=== PATIENT | male | born 1950 | race Caucasian/White ===

== ENCOUNTER 2016-05-28 15:53 | Inpatient (IN) | payer OTHER ==
[~2016-05-28] VITALS: Ht 188 cm; Wt 81.7 kg
[~2016-05-28 15:53] MED LIST: CARV3.122 PO; CHOL200024 PO; CRAN300T PO; DIPH25CA61 PO; FLUT1DIS3 INH; GUAI-44 PO; GUAI600T53 PO; HYDR-3138 PO; LISI2.5T PO; MAGN64TA7 PO; MAGN71.5 PO; MELA2.5T PO; NITR100C6 PO; OMEP-110 PO; PHEN-494 PO; SPIR25TA3 PO; SPIRONOLACT PO; SULF-187 PO; SULF1TAB24 PO; TAMS-11 PO; TIOT18CA INH; cranberry PO; vitamin b PO
[2016-05-28] MEDS ORDERED: ALBUTEROL/IPRATROPIUM 2.5MG/0.5MG, 3 ML ONE (16:14)
[2016-05-28] MEDS ORDERED: ALBUTEROL SULFATE 2.5 MG/3 ML ONE (16:14)
[2016-05-28] MEDS ORDERED: methylPREDNISolone SOD SUCC 125 MG/2 ML ONE (16:20)
[2016-05-28] MEDS ORDERED: SODIUM CHLORIDE FLUSH 10ML SYR IVF ONE (16:30)
[2016-05-28] MEDS ORDERED: ALBUTEROL/IPRATROPIUM 2.5MG/0.5MG, 3 ML NPPB ONE (16:30)
[2016-05-28] MEDS ORDERED: ALBUTEROL SULFATE 2.5 MG/3 ML NPPB ONE ×2 (16:30→18:00)
[2016-05-28] MEDS ORDERED: methylPREDNISolone SOD SUCC 125 MG/2 ML IVP ONE (16:30)
[2016-05-28 17:32] LABS: ABG COLLECTION SITE RIGHT RADIAL; COLLATERAL CIRCULATION TESTING NORMAL
[2016-05-28 17:43] LABS: HEMOGLOBIN 15.4 g/dL (13.7-18.0)
[2016-05-28 17:54] LABS: BLOOD UREA NITROGEN 29 mg/dL (7-18)
[2016-05-28 17:55] LABS: ASPARTATE AMINO TRANSFERASE 28 U/L (15-37)
[2016-05-28 18:00] LABS: IS PT STATUS REG ER OR PRE ER? YES
[2016-05-28 18:11] LABS: ANISOCYTOSIS 1+; OVALOCYTES 1+
[2016-05-28 18:12] LABS: POLYCHROMASIA 1+
[2016-05-28] MEDS ORDERED: BISACODYL 10 MG SUPP PR PRN (20:00)
[2016-05-28] MEDS ORDERED: ONDANSETRON ODT 4 MG PO PRN (20:00)
[2016-05-28] MEDS ORDERED: POLYETHYLENE GLYCOL 17 GM PACKET PO PRN (20:00)
[2016-05-28] MEDS ORDERED: ACETAMINOPHEN 325 MG TABLET PO PRN (20:00)
[2016-05-28] MEDS ORDERED: LABETALOL 5MG/ML, 20ML IV PRN (20:00)
[2016-05-28] MEDS ORDERED: DOCUSATE 100 MG CAPSULE PO PRN (20:00)
[2016-05-28 20:10] VITALS: BP 119/82
[2016-05-28] MEDS: HEPARIN 5,000 UNITS/ML, 1ML SQ SCH (21:24)
[2016-05-28] MEDS: NICOTINE 14MG/24 HR PATCH.TD24 TD SCH (21:24)
[2016-05-28] MEDS: FUROSEMIDE 40 MG/4 ML IV SCH (21:24)
[2016-05-28] MEDS: CARVEDILOL 3.125 MG TABLET PO SCH (21:25)
[2016-05-28] MEDS: TRAZODONE 50MG TABLET PO PRN (21:25)
[2016-05-28] MEDS: MAGNESIUM CHLORIDE 64 MG TABLET.DR PO SCH (21:25)
[2016-05-28 23:47] LABS: IS PT STATUS REG ER OR PRE ER? NO
[2016-05-29 01:45] VITALS: BP 117/76
[2016-05-29] MEDS ORDERED: IPRATROPIUM 0.5 MG/2.5 ML INHA NPPB SCH ×2 (02:30→09:00)
[2016-05-29] MEDS: HEPARIN 5,000 UNITS/ML, 1ML SQ SCH ×3 (05:20→22:56)
[2016-05-29 05:36] LABS: HEMOGLOBIN 15.4 g/dL (13.7-18.0)
[2016-05-29 06:07] LABS: ASPARTATE AMINO TRANSFERASE 23 U/L (15-37); BLOOD UREA NITROGEN 28 mg/dL (7-18)
[2016-05-29 06:13] LABS: IS PT STATUS REG ER OR PRE ER? NO
[2016-05-29] MEDS: ALBUTEROL/IPRATROPIUM 2.5MG/0.5MG, 3 ML NPPB SCH ×4 (07:00→20:00)
[2016-05-29 07:51] VITALS: BP 96/67
[2016-05-29] MEDS ORDERED: MAGNESIUM SULFATE PMX 2GM/50ML 50 ML IV ONE (08:00)
[2016-05-29 09:12] VITALS: BP 127/58
[2016-05-29] MEDS: FUROSEMIDE 40 MG/4 ML IV SCH ×2 (09:14→17:08)
[2016-05-29] MEDS: CARVEDILOL 3.125 MG TABLET PO SCH ×2 (09:15→21:02)
[2016-05-29] MEDS: THIAMINE 100MG TABLET PO SCH (09:15)
[2016-05-29] MEDS: OMEPRAZOLE 20 MG CAPSULE.DR PO SCH (09:15)
[2016-05-29] MEDS: LISINOPRIL 5 MG TABLET PO SCH (09:15)
[2016-05-29] MEDS: FOLIC ACID 1 MG TABLET PO SCH (09:15)
[2016-05-29] MEDS: MAGNESIUM CHLORIDE 64 MG TABLET.DR PO SCH ×2 (09:15→21:02)
[2016-05-29] MEDS: CHOLECALCIFEROL 1,000 UNIT TABLET PO SCH (09:15)
[2016-05-29] MEDS: SPIRONOLACTONE 25 MG TABLET PO SCH (09:16)
[2016-05-29] MEDS: FLUTICASONE/VILANTEROL 100-25MCG/INH INH SCH (10:33)
[2016-05-29 18:37] VITALS: BP 107/63
[2016-05-29] MEDS: NICOTINE 14MG/24 HR PATCH.TD24 TD SCH (21:02)
[2016-05-29] MEDS: TRAZODONE 50MG TABLET PO PRN (22:22)
[2016-05-30 00:53] VITALS: BP 128/74
[2016-05-30 06:25] LABS: HEMOGLOBIN 15.1 g/dL (13.7-18.0)
[2016-05-30 06:31] LABS: BLOOD UREA NITROGEN 32 mg/dL (7-18)
[2016-05-30 06:55] VITALS: BP 109/79
[2016-05-30] MEDS: ALBUTEROL/IPRATROPIUM 2.5MG/0.5MG, 3 ML NPPB SCH (06:55)
[2016-05-30 07:13] LABS: DIFF TOTAL CELLS COUNTED 100 CELL DIFF
[2016-05-30 07:39] LABS: ANISOCYTOSIS 1+; HYPOCHROMIA 1+; VERIFY COUNTS? YES
[2016-05-30 07:40] LABS: OVALOCYTES 1+
[2016-05-30] MEDS: FOLIC ACID 1 MG TABLET PO SCH (07:59)
[2016-05-30] MEDS: CHOLECALCIFEROL 1,000 UNIT TABLET PO SCH (07:59)
[2016-05-30] MEDS: MAGNESIUM CHLORIDE 64 MG TABLET.DR PO SCH (07:59)
[2016-05-30] MEDS: LISINOPRIL 5 MG TABLET PO SCH (07:59)
[2016-05-30] MEDS: SPIRONOLACTONE 25 MG TABLET PO SCH (07:59)
[2016-05-30] MEDS: CARVEDILOL 3.125 MG TABLET PO SCH (07:59)
[2016-05-30] MEDS: THIAMINE 100MG TABLET PO SCH (07:59)
[2016-05-30] MEDS: OMEPRAZOLE 20 MG CAPSULE.DR PO SCH (07:59)
[2016-05-30] MEDS: HEPARIN 5,000 UNITS/ML, 1ML SQ SCH (08:00)
[2016-05-30] MEDS: FLUTICASONE/VILANTEROL 100-25MCG/INH INH SCH (08:00)
[2016-05-30] MEDS: FUROSEMIDE 40 MG/4 ML IV SCH (08:00)
[2016-05-30] MEDS ORDERED: PRED10TA PO (11:20)
[2016-05-30] MEDS ORDERED: FURO40TA6 PO (11:20)
[2016-05-30] MEDS ORDERED: POTA10TA90 PO (11:20)
== END 2016-05-30 15:30 | disposition home or self-care (01) | DRG 291 ==
LOC: ED 18:52 → EDIP 18:58 → 4WST 20:08
PROVIDERS: ADMIT Internal Medicine; ATTEND Internal Medicine
DX: I50.43 Acute on chronic combined systolic (congestive) and diastolic (congestive) heart failure (principal); J96.01 Acute respiratory failure with hypoxia; E87.1 Hypo-osmolality and hyponatremia; I42.9 Cardiomyopathy, unspecified; J44.1 Chronic obstructive pulmonary disease with (acute) exacerbation; E88.09 Other disorders of plasma-protein metabolism, not elsewhere classified; F10.20 Alcohol dependence, uncomplicated; F12.90 Cannabis use, unspecified, uncomplicated; F17.210 Nicotine dependence, cigarettes, uncomplicated; K21.9 Gastro-esophageal reflux disease without esophagitis; R74.8 Abnormal levels of other serum enzymes; Z82.49 Family history of ischemic heart disease and other diseases of the circulatory system; Z91.19 Patient's noncompliance with other medical treatment and regimen; Z82.3 Family history of stroke; Z95.810 Presence of automatic (implantable) cardiac defibrillator; Z91.14 Patient's other noncompliance with medication regimen; Z90.49 Acquired absence of other specified parts of digestive tract; Z88.5 Allergy status to narcotic agent; Z79.899 Other long term (current) drug therapy
CPT/HCPCS: 36415; 36600; 71010; 80048; 80053; 82803; 83735; 83880; 84484; 85025; 85610; 85730; 93005; 94640; 96374; J1644; J1940; J7613; J7620; J2930; J3475; J7512

== ENCOUNTER 2016-08-24 01:12 | Inpatient (IN) | payer OTHER ==
[~2016-08-24] VITALS: Ht 188 cm; Wt 73.8 kg
[2016-08-24] VITALS (9 sets, daily range): BP systolic 92–125; BP diastolic 60–84
[~2016-08-24 01:12] MED LIST changes: +FURO40TA6 PO; +POTA10TA90 PO; +PRED10TA PO
[2016-08-24] MEDS ORDERED: SODIUM CHLORIDE FLUSH 10ML SYR IVF ONE (01:30)
[2016-08-24] MEDS ORDERED: SODIUM CHLORIDE 0.9% 1,000ML IVBOLUS ONE ×3 (01:30→02:00)
[2016-08-24] MEDS ORDERED: ESCI10TA PO (01:39)
[2016-08-24] MEDS ORDERED: GUAI-103 PO (01:39)
[2016-08-24 02:02] LABS: ASPARTATE AMINO TRANSFERASE 14 U/L (15-37); BLOOD UREA NITROGEN 26 mg/dL (7-18)
[2016-08-24 02:07] LABS: IS PT STATUS REG ER OR PRE ER? YES
[2016-08-24] MEDS ORDERED: ENOXAPARIN 40 MG/0.4 ML SQ SCH (04:00)
[2016-08-24] MEDS ORDERED: PROMETHAZINE 25 MG/ML, 1ML IM PRN (04:00)
[2016-08-24] MEDS ORDERED: MAGNESIUM SULFATE PMX 2GM/50ML 50 ML IV ONE ×2 (04:30→06:00)
[2016-08-24] MEDS ORDERED: LORazepam 2 MG/ML, 1ML IVPush PRN (04:30)
[2016-08-24] MEDS ORDERED: ALBUTEROL/IPRATROPIUM 2.5MG/0.5MG, 3 ML ONE (07:26)
[2016-08-24 07:35] LABS: IS PT STATUS REG ER OR PRE ER? YES
[2016-08-24] MEDS: ALBUTEROL/IPRATROPIUM 2.5MG/0.5MG, 3 ML NPPB SCH ×4 (07:44→20:00)
[2016-08-24] MEDS ORDERED: MAGNESIUM SULFATE PMX 4GM/100M 100 ML IV ONE (08:30)
[2016-08-24] MEDS: FOLIC ACID 1 MG TABLET PO SCH (10:23)
[2016-08-24] MEDS: MULTIVITAMIN 1 TABLET PO SCH (10:23)
[2016-08-24] MEDS: THIAMINE 100MG TABLET PO SCH (10:23)
[2016-08-24] MEDS: Tiotropium Bromide** (Spiriva**) 18 MCG) INH SCH (12:00)
[2016-08-24] MEDS: CARVEDILOL 3.125 MG TABLET PO SCH ×2 (12:00→21:07)
[2016-08-24] MEDS: LISINOPRIL 5 MG TABLET PO SCH (12:00)
[2016-08-24] MEDS: ADVAIR INH SCH (12:00)
[2016-08-24] MEDS: GUAIFENESIN ER 600 MG TABLET PO SCH ×2 (13:09→20:16)
[2016-08-24] MEDS: PSEUDOEPHEDRINE 30 MG TABLET PO SCH ×2 (13:09→20:16)
[2016-08-24] MEDS: CHOLECALCIFEROL 1,000 UNIT TABLET PO SCH (13:09)
[2016-08-24] MEDS: CITALOPRAM 20 MG TABLET PO SCH (13:10)
[2016-08-24 13:18] LABS: IS PT STATUS REG ER OR PRE ER? NO
[2016-08-24] MEDS ORDERED: HEPARIN 5,000 UNITS/ML, 1ML IV ONE (17:00)
[2016-08-24] MEDS ORDERED: HEPARIN 25,000 UNITS/500ML PMX 500 ML IV PRN ×2 (17:00)
[2016-08-25] VITALS (9 sets, daily range): BP systolic 93–128; BP diastolic 64–85
[2016-08-25] MEDS: HEPARIN 5,000 UNITS/ML, 1ML IV PRN ×2 (00:56→08:10)
[2016-08-25] MEDS: ALBUTEROL/IPRATROPIUM 2.5MG/0.5MG, 3 ML NPPB SCH ×4 (06:25→20:00)
[2016-08-25 07:33] LABS: ASPARTATE AMINO TRANSFERASE 16 U/L (15-37); BLOOD UREA NITROGEN 19 mg/dL (7-18)
[2016-08-25] MEDS: THIAMINE 100MG TABLET PO SCH (08:10)
[2016-08-25] MEDS: GUAIFENESIN ER 600 MG TABLET PO SCH ×2 (08:10→20:28)
[2016-08-25] MEDS: MULTIVITAMIN 1 TABLET PO SCH (08:10)
[2016-08-25] MEDS: CHOLECALCIFEROL 1,000 UNIT TABLET PO SCH (08:10)
[2016-08-25] MEDS: FOLIC ACID 1 MG TABLET PO SCH (08:11)
[2016-08-25] MEDS: CITALOPRAM 20 MG TABLET PO SCH (08:11)
[2016-08-25] MEDS: ADVAIR INH SCH (08:11)
[2016-08-25] MEDS: Tiotropium Bromide** (Spiriva**) 18 MCG) INH SCH (08:11)
[2016-08-25] MEDS: CARVEDILOL 3.125 MG TABLET PO SCH ×2 (08:11→20:28)
[2016-08-25] MEDS: PSEUDOEPHEDRINE 30 MG TABLET PO SCH ×2 (08:11→20:29)
[2016-08-25] MEDS: LISINOPRIL 5 MG TABLET PO SCH (08:13)
[2016-08-25] MEDS: RIVAROXABAN 15 MG TABLET PO SCH (16:59)
[2016-08-25] MEDS: FUROSEMIDE 40 MG TABLET PO SCH (20:28)
[2016-08-26 00:59] VITALS: BP 113/73
[2016-08-26 05:12] LABS: BLOOD UREA NITROGEN 17 mg/dL (7-18)
[2016-08-26 05:14] LABS: ASPARTATE AMINO TRANSFERASE 18 U/L (15-37)
[2016-08-26] MEDS: ALBUTEROL/IPRATROPIUM 2.5MG/0.5MG, 3 ML NPPB SCH ×2 (06:10→10:00)
[2016-08-26] MEDS ORDERED: RIVA1TAB PO (07:24)
[2016-08-26] MEDS ORDERED: SPIRONOLACTONE 25 MG TABLET PO SCH (09:00)
[2016-08-26 09:13] VITALS: BP_SYST 103; BP_SYST 106; BP_SYST 93; BP_DIAS 63; BP_DIAS 65; BP_DIAS 69
[2016-08-26] MEDS: PSEUDOEPHEDRINE 30 MG TABLET PO SCH (09:29)
[2016-08-26] MEDS: CITALOPRAM 20 MG TABLET PO SCH (09:30)
[2016-08-26] MEDS: MULTIVITAMIN 1 TABLET PO SCH (09:30)
[2016-08-26] MEDS: THIAMINE 100MG TABLET PO SCH (09:30)
[2016-08-26] MEDS: RIVAROXABAN 15 MG TABLET PO SCH (09:30)
[2016-08-26] MEDS: Tiotropium Bromide** (Spiriva**) 18 MCG) INH SCH (09:30)
[2016-08-26] MEDS: CARVEDILOL 3.125 MG TABLET PO SCH (09:30)
[2016-08-26] MEDS: ADVAIR INH SCH (09:30)
[2016-08-26] MEDS: FOLIC ACID 1 MG TABLET PO SCH (09:30)
[2016-08-26] MEDS: CHOLECALCIFEROL 1,000 UNIT TABLET PO SCH (09:30)
[2016-08-26] MEDS: LISINOPRIL 5 MG TABLET PO SCH (09:30)
[2016-08-26] MEDS: GUAIFENESIN ER 600 MG TABLET PO SCH (09:30)
[2016-08-26 10:58] VITALS: BP 119/62
[2016-08-26] MEDS: FUROSEMIDE 40 MG TABLET PO SCH (10:58)
[2016-08-26 11:46] VITALS: BP 95/62
[2016-08-26] MEDS ORDERED: THIA100T6 PO (11:56)
[2016-08-26] MEDS ORDERED: FOLI-17 PO (11:56)
== END 2016-08-26 14:37 | disposition home or self-care (01) | DRG 176 ==
LOC: ED 02:19 → EDIP 02:52 → 5SO 04:29 → DCLOUNGE 08-26 13:38
PROVIDERS: ADMIT Internal Medicine; ATTEND Internal Medicine
DX: I26.99 Other pulmonary embolism without acute cor pulmonale (principal); I42.9 Cardiomyopathy, unspecified; I47.2 Ventricular tachycardia; I50.42 Chronic combined systolic (congestive) and diastolic (congestive) heart failure; J96.10 Chronic respiratory failure, unspecified whether with hypoxia or hypercapnia; F45.8 Other somatoform disorders; F10.220 Alcohol dependence with intoxication, uncomplicated; E86.0 Dehydration; E83.51 Hypocalcemia; J44.9 Chronic obstructive pulmonary disease, unspecified; I11.0 Hypertensive heart disease with heart failure; I50.9 Heart failure, unspecified; D53.9 Nutritional anemia, unspecified; F17.210 Nicotine dependence, cigarettes, uncomplicated; F41.9 Anxiety disorder, unspecified; I27.2 Other secondary pulmonary hypertension; I35.1 Nonrheumatic aortic (valve) insufficiency; I07.1 Rheumatic tricuspid insufficiency; I45.10 Unspecified right bundle-branch block; K21.9 Gastro-esophageal reflux disease without esophagitis; N40.0 Benign prostatic hyperplasia without lower urinary tract symptoms; Z66 Do not resuscitate; I95.9 Hypotension, unspecified; Z95.810 Presence of automatic (implantable) cardiac defibrillator; Z99.81 Dependence on supplemental oxygen; Z90.49 Acquired absence of other specified parts of digestive tract; Z82.5 Family history of asthma and other chronic lower respiratory diseases; Z82.49 Family history of ischemic heart disease and other diseases of the circulatory system; Z82.0 Family history of epilepsy and other diseases of the nervous system; Z80.1 Family history of malignant neoplasm of trachea, bronchus and lung; Z88.5 Allergy status to narcotic agent; Z79.899 Other long term (current) drug therapy; Z91.19 Patient's noncompliance with other medical treatment and regimen
CPT/HCPCS: 36415; 70450; 71010; 71275; 80053; 80307; 82607; 82746; 83735; 84443; 84484; 85025; 85520; 85610; 85730; 93005; 93880; 94640; 96360; J1644; J1650; J7620; J3475; J7030

== ENCOUNTER 2017-10-13 13:26 | Emergency (ER) | payer OTHER, MEDICARE ==
[~2017-10-13] VITALS: Ht 188 cm; Wt 74.0 kg
[~2017-10-13 13:26] MED LIST changes: +ESCI10TA PO; +FOLI-17 PO; +FURO-92 PO; +GUAI-103 PO; +GUAI-106 PO; -GUAI-44 PO; -GUAI600T53 PO; +GUAI600T80 PO; -HYDR-3138 PO; +HYDR-3237 PO; -PHEN-494 PO; +PHEN-583 PO; +POTA10TA6 PO; -POTA10TA90 PO; +RIVA1TAB PO; +RIVA20TA PO; -SPIR25TA3 PO; +SPIR25TA5 PO; +SULF-16 PO; -SULF-187 PO; +THIA100T67 PO
[2017-10-13] MEDS ORDERED: SODIUM CHLORIDE FLUSH 10ML SYR IVF ONE (14:30)
[2017-10-13 14:44] LABS: INTERNATIONAL NORMALIZED RATIO 1.54 (0.93-1.1); PROTHROMBIN TIME 15.7 Seconds (9.6-11.5)
[2017-10-13 14:48] LABS: ALANINE AMINOTRANSFERASE 38 U/L (12-78); ALBUMIN 3.6 g/dL (3.4-5.0); ANION GAP 8 mmol/L (5-15); CALCIUM 8.5 mg/dL (8.5-10.1); CHLORIDE 100 mmol/L (98-107); CREATININE 1.04 mg/dL (0.7-1.3)
[2017-10-13 14:49] LABS: MEAN CORPUSCULAR HEMOGLOBIN 37.3 pg (27.5-34.5); MEAN CORPUSCULAR HGB CONC 33.9 g/dL (33.2-36.2); MEAN CORPUSCULAR VOLUME 110.1 fL (81-97); MEAN PLATELET VOLUME 8.2 fL (7.4-10.4); PLATELET COUNT 175 x10^3/uL (130-400); RED BLOOD COUNT 3.79 x10^6/uL (4.38-5.82); RED CELL DISTRIBUTION WIDTH 15.1 % (9.4-14.8)
[2017-10-13 14:52] LABS: ALKALINE PHOSPHATASE 97 U/L (45-117); BILIRUBIN,TOTAL 0.9 mg/dL (0.2-1.0); TOTAL PROTEIN 7.6 g/dL (6.4-8.2); TROPONIN I 0.045 ng/mL (0.000-0.045)
[2017-10-13 15:18] LABS: MD YES
[2017-10-13] MEDS ORDERED: MORPHINE SULFATE 4 MG/ML, 1ML ONE (15:20)
[2017-10-13] MEDS ORDERED: MORPHINE SULFATE 4 MG/ML, 1ML IVPush ONE (15:30)
[2017-10-13 15:40] LABS: BASOS#(MANUAL) 0.07 x10^3/uL (0-0.1); BASOS% (MANUAL) 1 % (0-1); EOS#(MANUAL) 0.14 x10^3/uL (0.0-0.4); EOS% (MANUAL) 2 % (1-7); LYMPH#(MANUAL) 1.52 x10^3/uL (1-3.4); LYMPHS% (MANUAL) 22 % (22-44); MONOS#(MANUAL) 0.41 x10^3/uL (0.3-2.7); MONOS% (MANUAL) 6 % (2-9); SEG#(MANUAL) 4.76 x10^3/uL (1.8-6.8); SEGS% (MANUAL) 69 % (42-75)
[2017-10-13 15:41] LABS: <PLATELET ESTIMATE> ADEQUATE; <PLT MORPHOLOGY> NORMAL PLT MORPH; OVALOCYTES 1+
[2017-10-13 17:56] VITALS: BP 123/81
== END 2017-10-13 17:59 | disposition home or self-care (01) ==
LOC: ED 16:58
DX: Z95.810 Presence of automatic (implantable) cardiac defibrillator (principal); Z45.02 Encounter for adjustment and management of automatic implantable cardiac defibrillator; I50.9 Heart failure, unspecified; I11.0 Hypertensive heart disease with heart failure; J44.9 Chronic obstructive pulmonary disease, unspecified; F17.200 Nicotine dependence, unspecified, uncomplicated
CPT/HCPCS: 36415; 71045; 80053; 83880; 84484; 85025; 85610; 93005; 96374

== ENCOUNTER 2018-01-17 21:29 | Inpatient (IN) | payer OTHER ==
[~2018-01-17] VITALS: Ht 188 cm; Wt 74.6 kg
[2018-01-17] MEDS ORDERED: ALBUTEROL SULFATE 2.5 MG/3 ML ONE (22:09)
[2018-01-17 22:19] LABS: MEAN CORPUSCULAR HEMOGLOBIN 38.2 pg (27.5-34.5); MEAN CORPUSCULAR HGB CONC 33.6 g/dL (33.2-36.2); MEAN CORPUSCULAR VOLUME 113.7 fL (81-97); MEAN PLATELET VOLUME 8.4 fL (7.4-10.4); PLATELET COUNT 168 x10^3/uL (130-400); RED BLOOD COUNT 3.76 x10^6/uL (4.38-5.82)
[2018-01-17] MEDS ORDERED: ALBUTEROL SULFATE 2.5 MG/3 ML NPPB ONE (22:30)
[2018-01-17 22:31] LABS: ALANINE AMINOTRANSFERASE 30 U/L (12-78); ALBUMIN 3.7 g/dL (3.4-5.0); ANION GAP 11 mmol/L (5-15); CALCIUM 8.9 mg/dL (8.5-10.1); CHLORIDE 100 mmol/L (98-107); CREATININE 0.95 mg/dL (0.7-1.3)
[2018-01-17 22:36] LABS: ALKALINE PHOSPHATASE 92 U/L (45-117); BILIRUBIN,TOTAL 1.2 mg/dL (0.2-1.0); TOTAL PROTEIN 7.5 g/dL (6.4-8.2); TROPONIN I 0.029 ng/mL (0.000-0.045)
[2018-01-17 22:44] LABS: BASOPHILS # (AUTO) 0.03 x10^3/uL (0-0.1); BASOPHILS % (AUTO) 0 % (0-1); EOSINOPHILS # (AUTO) 0.06 x10^3/uL (0-0.4); EOSINOPHILS % (AUTO) 1 % (1-7); LYMPHOCYTES # (AUTO) 1.27 x10^3/uL (1-3.4); LYMPHOCYTES % (AUTO) 18 % (22-44); MD SCAN; MONOCYTES # (AUTO) 0.68 x10^3/uL (0.2-0.8); MONOCYTES % (AUTO) 9 % (2-9); NEUTROPHILS # (AUTO) 5.22 x10^3/uL (1.8-6.8); NEUTROPHILS % (AUTO) 72 % (42-75)
[2018-01-17] MEDS ORDERED: AZITHROMYCIN 500 MG in SODIUM CHLORIDE 0.9% 250 ML IV ONE (23:00)
[2018-01-17] MEDS ORDERED: MORPHINE SULFATE 4 MG/ML, 1ML IVPush PRN ×2 (23:00)
[2018-01-17] MEDS ORDERED: ONDANSETRON 2MG/ML, 2ML IVPush PRN (23:00)
[2018-01-17] MEDS ORDERED: ONDANSETRON 2MG/ML, 2ML IVPush ONE (23:00)
[2018-01-17] MEDS ORDERED: ONDANSETRON 2MG/ML, 2ML ONE (23:18)
[2018-01-17] MEDS ORDERED: MORPHINE SULFATE 4 MG/ML, 1ML ONE (23:19)
[2018-01-17] MEDS ORDERED: POLYETHYLENE GLYCOL 17 GM PACKET PO PRN (23:30)
[2018-01-17] MEDS ORDERED: BISACODYL 10 MG SUPP PR PRN (23:30)
[2018-01-17] MEDS ORDERED: ONDANSETRON ODT 4 MG PO PRN (23:30)
[2018-01-17] MEDS ORDERED: TEMPLATE NON-FORMULARY MED. (Cranberry Extract** (Cranberry**) 300 MG) PO SCH (23:30)
[2018-01-17] MEDS ORDERED: ACETAMINOPHEN 325 MG TABLET PO PRN (23:30)
[2018-01-17] MEDS ORDERED: NICOTINE 14MG/24 HR PATCH.TD24 TD SCH (23:30)
[2018-01-17] MEDS ORDERED: morphine SULFATE 10 MG/ML, 1ML IVPush PRN (23:30)
[2018-01-17] MEDS ORDERED: NITROGLYCERIN 0.4 MG BOTTLE (25 TABS) SL PRN (23:30)
[2018-01-17 23:45] VITALS: BP 104/71
[2018-01-18] MEDS ORDERED: ALBUTEROL/IPRATROPIUM 2.5MG/0.5MG, 3 ML NPPB PRN
[2018-01-18 00:22] LABS: FREE T4 (FREE THYROXINE) 1.04 ng/dL (0.76-1.46)
[2018-01-18 00:24] LABS: FOLATE LEVEL > 20.0 ng/mL (3.1-17.5)
[2018-01-18] MEDS: MAGNESIUM CHLORIDE 64 MG TABLET.DR PO SCH ×3 (00:43→21:12)
[2018-01-18] MEDS: POTASSIUM CHLORIDE 10 MEQ TABLET.ER PO SCH ×3 (00:43→21:11)
[2018-01-18] MEDS: DOXYCYCLINE 100 MG in DEXTROSE 5% 250 ML IV SCH ×2 (00:44→15:47)
[2018-01-18] MEDS: methylPREDNISolone SOD SUCC 125 MG/2 ML IVPush SCH ×2 (00:44→05:57)
[2018-01-18] MEDS: CARVEDILOL 3.125 MG TABLET PO SCH ×3 (00:53→21:12)
[2018-01-18] MEDS: TEMPLATE NON-FORMULARY MED. (Guaifenesin/Pseudoephedrne Hcl** (Mucinex D Er Tablet**) 1 TA HOMEMEDPO SCH ×3 (00:53→21:12)
[2018-01-18] MEDS: SODIUM CHLORIDE FLUSH 10ML SYR IVF SCH ×3 (00:53→21:12)
[2018-01-18] MEDS: CEFTRIAXONE PMX 1GM/50ML 50 ML IV SCH (01:59)
[2018-01-18 02:05] VITALS: BP 125/82
[2018-01-18] MEDS: ALBUTEROL/IPRATROPIUM 2.5MG/0.5MG, 3 ML NPPB SCH ×4 (02:50→20:00)
[2018-01-18 04:50] LABS: MEAN CORPUSCULAR HEMOGLOBIN 38.2 pg (27.5-34.5); MEAN CORPUSCULAR HGB CONC 33.9 g/dL (33.2-36.2); MEAN CORPUSCULAR VOLUME 112.4 fL (81-97); MEAN PLATELET VOLUME 8.6 fL (7.4-10.4); PLATELET COUNT 156 x10^3/uL (130-400); RED BLOOD COUNT 3.61 x10^6/uL (4.38-5.82); RED CELL DISTRIBUTION WIDTH 14.8 % (9.4-14.8)
[2018-01-18 05:01] LABS: CHLORIDE 99 mmol/L (98-107)
[2018-01-18 05:11] LABS: ALANINE AMINOTRANSFERASE 24 U/L (12-78); ALBUMIN 3.6 g/dL (3.4-5.0); ALKALINE PHOSPHATASE 88 U/L (45-117); ANION GAP 9 mmol/L (5-15); BILIRUBIN,TOTAL 0.9 mg/dL (0.2-1.0); CALCIUM 8.6 mg/dL (8.5-10.1); CHOL/HDL RATIO 2.4; CHOLESTEROL, TOTAL 153 mg/dL (140-239); CREATININE 1.01 mg/dL (0.7-1.3); HDL CHOL % 42 % (26-37); HDL CHOLESTEROL (DIRECT) 65 mg/dL (40-60); LDL CHOLESTEROL,CALCULATED 75 mg/dL (54-169); LDL/HDL RATIO 1.2 (0.5-3.0); TRIGLYCERIDES 67 mg/dL (50-200); TROPONIN I 0.026 ng/mL (0.000-0.045); VLDL CHOLESTEROL 13 mg/dL (0-25)
[2018-01-18 05:18] LABS: BASOPHILS % (AUTO) 0 % (0-1); EOSINOPHILS % (AUTO) 0 % (1-7); LYMPHOCYTES # (AUTO) 0.56 x10^3/uL (1-3.4); LYMPHOCYTES % (AUTO) 9 % (22-44); MD SCAN; MONOCYTES # (AUTO) 0.06 x10^3/uL (0.2-0.8); MONOCYTES % (AUTO) 1 % (2-9); NEUTROPHILS # (AUTO) 5.66 x10^3/uL (1.8-6.8); NEUTROPHILS % (AUTO) 90 % (42-75)
[2018-01-18 07:48] VITALS: BP 123/75
[2018-01-18] MEDS: TEMPLATE NON-FORMULARY MED. (Escitalopram Oxalate** 10 MG) HOMEMEDPO SCH (09:00)
[2018-01-18] MEDS ORDERED: TEMPLATE NON-FORMULARY MED. (Fluticasone/Salmeterol** (Advair 250-50 Diskus**) 1 PUFF) INH SCH (09:00)
[2018-01-18] MEDS: BUDESONIDE 0.5 MG/2 ML INHA NPPB SCH ×2 (09:00→20:00)
[2018-01-18] MEDS: FOLIC ACID 1 MG TABLET PO SCH (09:00)
[2018-01-18] MEDS ORDERED: TEMPLATE NON-FORMULARY MED. (Tiotropium Bromide** (Spiriva**) 18 MCG) INH SCH (09:00)
[2018-01-18 10:00] VITALS: BP 134/87
[2018-01-18] MEDS: SPIRONOLACTONE 25 MG TABLET PO SCH (10:10)
[2018-01-18] MEDS: CHOLECALCIFEROL 1,000 UNIT TABLET PO SCH (10:10)
[2018-01-18] MEDS: FUROSEMIDE 40 MG TABLET PO SCH (10:12)
[2018-01-18] MEDS: RIVAROXABAN 20 MG TABLET PO SCH (10:14)
[2018-01-18] MEDS: OMEPRAZOLE 20 MG CAPSULE.DR PO SCH (10:14)
[2018-01-18] MEDS: SENNA/DOCUSATE TABLET PO SCH (10:14)
[2018-01-18 10:19] LABS: TROPONIN I 0.019 ng/mL (0.000-0.045)
[2018-01-18] MEDS: NICOTINE 14MG/24 HR PATCH.TD24 TD SCH (10:21)
[2018-01-18 13:49] VITALS: BP 123/75
[2018-01-18] MEDS: methylPREDNISolone SOD SUCC 40 MG/ML IVPush SCH ×2 (15:22→23:39)
[2018-01-18] MEDS ORDERED: MAGNESIUM SULFATE PMX 2GM/50ML 50 ML IV ONE (16:00)
[2018-01-18] MEDS: BENZONATATE 100 MG CAPSULE PO PRN (16:49)
[2018-01-18 20:54] VITALS: BP 111/71
[2018-01-18 21:10] VITALS: BP 127/78
[2018-01-19 01:31] VITALS: BP 132/84
[2018-01-19] MEDS: ALBUTEROL/IPRATROPIUM 2.5MG/0.5MG, 3 ML NPPB SCH ×2 (02:46→14:00)
[2018-01-19] MEDS: DOXYCYCLINE 100 MG in DEXTROSE 5% 250 ML IV SCH (02:47)
[2018-01-19] MEDS: BENZONATATE 100 MG CAPSULE PO PRN (02:57)
[2018-01-19] MEDS: CEFTRIAXONE PMX 1GM/50ML 50 ML IV SCH (03:59)
[2018-01-19] MEDS: methylPREDNISolone SOD SUCC 40 MG/ML IVPush SCH (07:30)
[2018-01-19] MEDS: SENNA/DOCUSATE TABLET PO SCH (09:00)
[2018-01-19] MEDS: TEMPLATE NON-FORMULARY MED. (Escitalopram Oxalate** 10 MG) HOMEMEDPO SCH (09:00)
[2018-01-19] MEDS: FOLIC ACID 1 MG TABLET PO SCH (09:00)
[2018-01-19] MEDS: TEMPLATE NON-FORMULARY MED. (Guaifenesin/Pseudoephedrne Hcl** (Mucinex D Er Tablet**) 1 TA HOMEMEDPO SCH (09:00)
[2018-01-19] MEDS ORDERED: PRED10TA PO (09:49)
[2018-01-19] MEDS ORDERED: BENZ-17 PO (09:49)
[2018-01-19] MEDS ORDERED: IPRA3AMP30 NPPB (09:49)
[2018-01-19] MEDS ORDERED: DOXY100T PO (09:49)
[2018-01-19] MEDS ORDERED: MAGNESIUM OXIDE 400 MG TABLET PO SCH (10:00)
[2018-01-19] MEDS: OMEPRAZOLE 20 MG CAPSULE.DR PO SCH (10:33)
[2018-01-19] MEDS: MAGNESIUM CHLORIDE 64 MG TABLET.DR PO SCH (10:33)
[2018-01-19] MEDS: SPIRONOLACTONE 25 MG TABLET PO SCH (10:34)
[2018-01-19] MEDS: CARVEDILOL 3.125 MG TABLET PO SCH (10:34)
[2018-01-19] MEDS: CHOLECALCIFEROL 1,000 UNIT TABLET PO SCH (10:34)
[2018-01-19] MEDS: POTASSIUM CHLORIDE 10 MEQ TABLET.ER PO SCH (10:34)
[2018-01-19] MEDS: RIVAROXABAN 20 MG TABLET PO SCH (10:34)
[2018-01-19] MEDS: FUROSEMIDE 40 MG TABLET PO SCH (10:34)
[2018-01-19] MEDS: NICOTINE 14MG/24 HR PATCH.TD24 TD SCH (10:35)
[2018-01-19] MEDS: BUDESONIDE 0.5 MG/2 ML INHA NPPB SCH (14:00)
== END 2018-01-19 14:40 | disposition home or self-care (01) | DRG 291 ==
LOC: ED 22:58 → EDIP 22:59 → ED 23:09 → 4WST 01-18 00:03 → DCLOUNGE 01-19 14:29
PROVIDERS: ADMIT Internal Medicine; ATTEND Internal Medicine
DX: I11.0 Hypertensive heart disease with heart failure (principal); I50.21 Acute systolic (congestive) heart failure; J44.1 Chronic obstructive pulmonary disease with (acute) exacerbation; J96.11 Chronic respiratory failure with hypoxia; I42.9 Cardiomyopathy, unspecified; F17.210 Nicotine dependence, cigarettes, uncomplicated; D75.89 Other specified diseases of blood and blood-forming organs; G47.33 Obstructive sleep apnea (adult) (pediatric); I27.20 Pulmonary hypertension, unspecified; I45.9 Conduction disorder, unspecified; Z80.1 Family history of malignant neoplasm of trachea, bronchus and lung; Z82.49 Family history of ischemic heart disease and other diseases of the circulatory system; Z86.711 Personal history of pulmonary embolism; Z95.810 Presence of automatic (implantable) cardiac defibrillator; Z99.81 Dependence on supplemental oxygen; Z90.49 Acquired absence of other specified parts of digestive tract; Z88.5 Allergy status to narcotic agent; Z71.6 Tobacco abuse counseling
CPT/HCPCS: 36415; 99285; J7613; J7620; J7626; 71045; 80053; 80061; 82607; 82746; 83735; 83880; 84439; 84443; 84484; 85025; 87070; 87077; 87186; 87205; 93005; 94640; 96365; 96366; 96375; G0378; J0456; J0696; J2405; J7060; J2270; J2920; J2930; J3475; J7050; J7512

== ENCOUNTER → 2018-02-24 | Outpatient (CLI) | payer OTHER ==
[~2018-02-24] MED LIST changes: +BENZ-17 PO; +DOXY100T PO; +IPRA3AMP30 NPPB
== END | disposition home or self-care (01) ==
LOC: PETCFH 08:36
PROVIDERS: ATTEND Nurse Practitioner Family
DX: R91.1 Solitary pulmonary nodule (principal); J43.9 Emphysema, unspecified; I51.7 Cardiomegaly; I50.9 Heart failure, unspecified; M47.9 Spondylosis, unspecified; F10.10 Alcohol abuse, uncomplicated; F17.200 Nicotine dependence, unspecified, uncomplicated
CPT/HCPCS: 78815; A9552

== ENCOUNTER → 2018-05-31 | Outpatient (CLI) | payer OTHER | END | disposition home or self-care (01) | LOC: CFH 08:15 | PROVIDERS: ATTEND Nurse Practitioner Family | DX: J43.2 Centrilobular emphysema (principal); R91.1 Solitary pulmonary nodule; Z87.891 Personal history of nicotine dependence | CPT/HCPCS: 71250 ==

== ENCOUNTER 2019-12-03 00:37 | Inpatient (IN) | payer OTHER, MEDICARE ==
[2019-12-03] VITALS (7 sets, daily range): BP systolic 100–130; BP diastolic 57–82
[~2019-12-03] VITALS: Ht 188 cm; Wt 64.0 kg
--- NOTE | 2019-12-03 01:12 | NUR ---
ED MD at bedside
[2019-12-03] MEDS ORDERED: MORPHINE SULFATE 4 MG/ML, 1ML ONE (01:22)
[2019-12-03] MEDS ORDERED: methylPREDNISolone SOD SUCC 40 MG/ML ONE (01:22)
[2019-12-03] MEDS ORDERED: ALBUTEROL SULFATE 2.5 MG/3 ML ONE (01:23)
[2019-12-03] MEDS ORDERED: ALBUTEROL SULFATE 2.5 MG/3 ML NPPB ONE (01:30)
[2019-12-03] MEDS ORDERED: MORPHINE SULFATE 4 MG/ML, 1ML IVPush PRN ×2 (01:30→07:30)
[2019-12-03] MEDS ORDERED: methylPREDNISolone SOD SUCC 125 MG/2 ML IVPB ONE (01:30)
[2019-12-03 01:51] LABS: BASOPHILS % (AUTO) 0 % (0-1); EOSINOPHILS % (AUTO) 0 % (1-7); LYMPHOCYTES % (AUTO) 7 % (22-44); MEAN CORPUSCULAR HEMOGLOBIN 36.4 pg (27.5-34.5); MEAN CORPUSCULAR HGB CONC 33.3 g/dL (33.2-36.2); MEAN PLATELET VOLUME 8.8 fL (7.4-10.4); MONOCYTES % (AUTO) 6 % (2-9); NEUTROPHILS % (AUTO) 86 % (42-75); PLATELET COUNT 215 x10^3/uL (130-400); RED BLOOD COUNT 4.03 x10^6/uL (4.38-5.82); RED CELL DISTRIBUTION WIDTH 13.7 % (9.4-14.8)
[2019-12-03 02:01] LABS: ALANINE AMINOTRANSFERASE 18 U/L (12-78); ALBUMIN 3.6 g/dL (3.4-5.0); ANION GAP 3 mmol/L (5-15); CALCIUM 9.1 mg/dL (8.5-10.1); CHLORIDE 102 mmol/L (98-107); CREATININE 1.07 mg/dL (0.7-1.3)
[2019-12-03 02:05] LABS: ALKALINE PHOSPHATASE 73 U/L (45-117); BILIRUBIN,TOTAL 0.8 mg/dL (0.2-1.0); TOTAL PROTEIN 7.5 g/dL (6.4-8.2)
[2019-12-03 02:17] LABS: TROPONIN I 0.222 ng/mL (0.000-0.045)
[2019-12-03 02:27] LABS: MD MORPH REVIEW ONLY
[2019-12-03 02:28] LABS: ANISOCYTOSIS 1+; OVALOCYTES 1+; TOXIC GRAN 1+
[2019-12-03 02:29] LABS: <PLATELET ESTIMATE> ADEQUATE; LARGE PLATELETS 1+
--- NOTE | 2019-12-03 03:20 | NUR ---
A&o x4, answering questions appropriately. Pt arrives c/o increased SOB and worsening cough productive of green sputum with associated increased weakness/fatigue x2 days. States Stage 4 COPD and wears 4-5L NC at baseline, admits to being noncompliant with nebds and other meds at come. Continues to smoke 1 PPD. O2 low 80s at home on 4L NC. Upon arrival to ED, O2 low 90s 4L NC. Pt appears to be having difficulty breathing with use of accessory muscles noted, pt's partner at bedside states this is baseline. Provider aware. Denies fever/chills. Denies chest pain. Denies abd pain/N/V/D. Remains on continuous tele/O2 monitoring.
[2019-12-03] MEDS ORDERED: AZITHROMYCIN 500 MG in SODIUM CHLORIDE 0.9% 250 ML IV ONE (03:30)
[2019-12-03] MEDS ORDERED: ASPIRIN 81 MG TABLET CHEW PO ONE (03:30)
[2019-12-03] MEDS ORDERED: CEFTRIAXONE PMX 1GM/50ML 50 ML IV ONE (03:30)
[2019-12-03] MEDS ORDERED: ASPIRIN 81 MG TABLET CHEW ONE (03:53)
[2019-12-03] MEDS ORDERED: CEFTRIAXONE PMX 1GM/50ML 50 ML ONE (03:53)
[2019-12-03] MEDS ORDERED: ACETAMINOPHEN 325 MG TABLET PO PRN ×2 (04:00→08:30)
[2019-12-03] MEDS ORDERED: methylPREDNISolone SOD SUCC 40 MG/ML IVPush SCH (04:00)
[2019-12-03] MEDS ORDERED: GUAIFENESIN/DM 200-20MG, 10ML UDC PO PRN (04:00)
[2019-12-03] MEDS ORDERED: AZITHROMYCIN 250 MG TABLET PO ONE (04:00)
--- NOTE | 2019-12-03 04:00 | NUR ---
Report given to Michelle VILLARREAL
[2019-12-03 06:07] LABS: C-REACTIVE PROTEIN, QUANT 1.57 mg/dL (0.02-0.49); TROPONIN I 0.985 ng/mL (0.000-0.045)
[2019-12-03] MEDS: NITROGLYCERIN 0.4 MG BOTTLE (25 TABS) SL PRN ×2 (06:52→06:58)
[2019-12-03] MEDS: ALBUTEROL HFA 90 MCG/SPRAY INH SCH ×4 (08:12→20:10)
[2019-12-03] MEDS: HEPARIN/XARELTO MC SCH ×2 (08:49→15:00)
[2019-12-03] MEDS: ASPIRIN 81 MG TABLET CHEW PO SCH (09:00)
[2019-12-03] MEDS: FUROSEMIDE 40 MG/4 ML IVPush SCH (09:50)
[2019-12-03] MEDS: RIVAROXABAN 20 MG TABLET PO SCH (09:51)
[2019-12-03] MEDS: LACTOBACILLUS CHEW TABLET PO SCH ×3 (09:51→22:29)
[2019-12-03] MEDS: OMEPRAZOLE 20 MG CAPSULE.DR PO SCH (09:51)
[2019-12-03] MEDS: POTASSIUM CHLORIDE 10 MEQ TABLET.ER PO SCH ×2 (09:51→22:30)
[2019-12-03] MEDS: CARVEDILOL 3.125 MG TABLET PO SCH ×2 (09:51→22:29)
[2019-12-03] MEDS: SPIRONOLACTONE 25 MG TABLET PO SCH (09:53)
[2019-12-03] MEDS: FLUTICASONE/VILANTEROL 200-25MCG/INH INH SCH (11:00)
[2019-12-03] MEDS: TIOTROPIUM BROMIDE 18 MCG/INH INH SCH (11:00)
[2019-12-03 16:54] LABS: TROPONIN I 0.863 ng/mL (0.000-0.045)
[2019-12-03] MEDS: ATORVASTATIN 40 MG TABLET PO SCH (22:29)
[2019-12-04 02:58] VITALS: BP 93/59
[2019-12-04 02:58] LABS: BASOPHILS % (AUTO) 0 % (0-1); EOSINOPHILS % (AUTO) 0 % (1-7); LYMPHOCYTES % (AUTO) 7 % (22-44); MEAN CORPUSCULAR HGB CONC 33.6 g/dL (33.2-36.2); MEAN PLATELET VOLUME 8.6 fL (7.4-10.4); MONOCYTES % (AUTO) 4 % (2-9); NEUTROPHILS % (AUTO) 90 % (42-75); PLATELET COUNT 192 x10^3/uL (130-400); RED BLOOD COUNT 3.83 x10^6/uL (4.38-5.82); RED CELL DISTRIBUTION WIDTH 13.8 % (9.4-14.8)
[2019-12-04] MEDS: CEFTRIAXONE PMX 1GM/50ML 50 ML IVPB SCH (03:06)
[2019-12-04 03:08] LABS: ANION GAP 5 mmol/L (5-15); CALCIUM 8.9 mg/dL (8.5-10.1); CHLORIDE 104 mmol/L (98-107); CREATININE 0.92 mg/dL (0.7-1.3)
[2019-12-04 03:20] LABS: MD SCAN
[2019-12-04] MEDS: ALBUTEROL HFA 90 MCG/SPRAY INH SCH ×2 (06:00→11:02)
[2019-12-04 06:45] VITALS: BP 112/65
[2019-12-04] MEDS: FLUTICASONE/VILANTEROL 200-25MCG/INH INH SCH (08:35)
[2019-12-04] MEDS: TIOTROPIUM BROMIDE 18 MCG/INH INH SCH (08:35)
[2019-12-04] MEDS: ASPIRIN 81 MG TABLET CHEW PO SCH (09:04)
[2019-12-04] MEDS: SPIRONOLACTONE 25 MG TABLET PO SCH (09:04)
[2019-12-04] MEDS: FUROSEMIDE 40 MG/4 ML IVPush SCH (09:04)
[2019-12-04] MEDS: POTASSIUM CHLORIDE 10 MEQ TABLET.ER PO SCH ×2 (09:04→20:46)
[2019-12-04] MEDS: OMEPRAZOLE 20 MG CAPSULE.DR PO SCH (09:04)
[2019-12-04] MEDS: LACTOBACILLUS CHEW TABLET PO SCH ×3 (09:04→20:46)
[2019-12-04] MEDS: RIVAROXABAN 20 MG TABLET PO SCH (09:05)
[2019-12-04] MEDS: CARVEDILOL 3.125 MG TABLET PO SCH ×2 (09:05→20:46)
[2019-12-04 12:23] VITALS: BP 118/72
[2019-12-04] MEDS: NICOTINE 14MG/24 HR PATCH.TD24 TD SCH (12:51)
[2019-12-04 19:44] VITALS: BP 107/68
[2019-12-04] MEDS: ATORVASTATIN 40 MG TABLET PO SCH (20:46)
[2019-12-04] MEDS ORDERED: TEMAZEPAM 15 MG CAPSULE ONE (23:46)
[2019-12-05] MEDS: TEMAZEPAM 15 MG CAPSULE PO PRN ×2 (00:03→21:22)
[2019-12-05 03:14] VITALS: BP 93/53
[2019-12-05] MEDS: CEFTRIAXONE PMX 1GM/50ML 50 ML IVPB SCH (03:14)
[2019-12-05 06:34] LABS: ANION GAP 3 mmol/L (5-15); CALCIUM 8.9 mg/dL (8.5-10.1); CHLORIDE 104 mmol/L (98-107)
[2019-12-05 06:39] LABS: CREATININE 0.81 mg/dL (0.7-1.3)
[2019-12-05 08:17] VITALS: BP 110/64
[2019-12-05] MEDS: ALBUTEROL HFA 90 MCG/SPRAY INH SCH (08:20)
[2019-12-05] MEDS: TIOTROPIUM BROMIDE 18 MCG/INH INH SCH (08:20)
[2019-12-05] MEDS: FLUTICASONE/VILANTEROL 200-25MCG/INH INH SCH (08:20)
[2019-12-05] MEDS: FUROSEMIDE 40 MG/4 ML IVPush SCH (10:11)
[2019-12-05] MEDS: POTASSIUM CHLORIDE 10 MEQ TABLET.ER PO SCH ×2 (10:17→21:22)
[2019-12-05] MEDS: OMEPRAZOLE 20 MG CAPSULE.DR PO SCH (10:17)
[2019-12-05] MEDS: RIVAROXABAN 20 MG TABLET PO SCH (10:17)
[2019-12-05] MEDS: ASPIRIN 81 MG TABLET CHEW PO SCH (10:17)
[2019-12-05] MEDS: LACTOBACILLUS CHEW TABLET PO SCH ×3 (10:17→21:21)
[2019-12-05] MEDS: SPIRONOLACTONE 25 MG TABLET PO SCH (10:18)
[2019-12-05] MEDS: CARVEDILOL 3.125 MG TABLET PO SCH ×2 (10:21→21:21)
[2019-12-05] MEDS: NICOTINE 14MG/24 HR PATCH.TD24 TD SCH (11:38)
[2019-12-05 12:22] VITALS: BP 111/67
[2019-12-05] MEDS ORDERED: MAGNESIUM HYDROXIDE 8%, 30ML UDC PO PRN (15:00)
[2019-12-05 19:05] VITALS: BP 113/72
[2019-12-05] MEDS: ATORVASTATIN 40 MG TABLET PO SCH (21:21)
[2019-12-06 01:43] VITALS: BP 107/62
[2019-12-06] MEDS: CEFTRIAXONE PMX 1GM/50ML 50 ML IVPB SCH (04:43)
[2019-12-06 07:59] VITALS: BP 97/61
[2019-12-06] MEDS: FLUTICASONE/VILANTEROL 200-25MCG/INH INH SCH (09:02)
[2019-12-06] MEDS: ALBUTEROL HFA 90 MCG/SPRAY INH SCH (09:02)
[2019-12-06] MEDS: TIOTROPIUM BROMIDE 18 MCG/INH INH SCH (09:02)
[2019-12-06] MEDS: FUROSEMIDE 40 MG/4 ML IVPush SCH (09:56)
[2019-12-06] MEDS: LACTOBACILLUS CHEW TABLET PO SCH ×3 (09:58→21:44)
[2019-12-06] MEDS: CARVEDILOL 3.125 MG TABLET PO SCH ×2 (09:59→21:44)
[2019-12-06] MEDS: SPIRONOLACTONE 25 MG TABLET PO SCH ×2 (10:00→10:37)
[2019-12-06] MEDS: ASPIRIN 81 MG TABLET CHEW PO SCH (10:01)
[2019-12-06] MEDS: OMEPRAZOLE 20 MG CAPSULE.DR PO SCH (10:01)
[2019-12-06] MEDS: POTASSIUM CHLORIDE 10 MEQ TABLET.ER PO SCH ×2 (10:02→21:44)
[2019-12-06] MEDS ORDERED: FUROSEMIDE 40 MG TABLET PO SCH (10:30)
[2019-12-06] MEDS: AMIODARONE 200 MG TABLET PO SCH (10:38)
[2019-12-06] MEDS ORDERED: FENTANYL PF 100 MCG/2ML ONE (12:07)
[2019-12-06] MEDS ORDERED: MIDAZOLAM 1 MG/ML, 5ML ONE (12:07)
[2019-12-06] MEDS ORDERED: LIDOCAINE-MPF 1%, 5ML ONE (12:07)
[2019-12-06] MEDS ORDERED: TICAGRELOR 90 MG TABLET ONE (12:07)
[2019-12-06] MEDS ORDERED: BIVALIRUDIN 250 MG ONE (12:07)
[2019-12-06] MEDS ORDERED: VERAPAMIL 2.5 MG/ML, 2ML ONE (12:07)
[2019-12-06 12:08] VITALS: BP 107/56
[2019-12-06] MEDS: NICOTINE 14MG/24 HR PATCH.TD24 TD SCH (12:29)
[2019-12-06 15:45] VITALS: BP 114/77
[2019-12-06] MEDS ORDERED: RIVAROXABAN 20 MG TABLET PO SCH ×2 (17:23→17:24)
[2019-12-06 19:34] VITALS: BP 121/73
[2019-12-06 21:42] VITALS: BP 119/70
[2019-12-06] MEDS: TEMAZEPAM 15 MG CAPSULE PO PRN (21:44)
[2019-12-06] MEDS: ATORVASTATIN 40 MG TABLET PO SCH (21:44)
[2019-12-07 00:48] VITALS: BP 128/71
[2019-12-07] MEDS: CEFTRIAXONE PMX 1GM/50ML 50 ML IVPB SCH (03:44)
[2019-12-07 07:00] VITALS: BP 109/65
[2019-12-07] MEDS ORDERED: FUROSEMIDE 40 MG TABLET PO SCH ×2 (09:00→21:00)
[2019-12-07] MEDS: FLUTICASONE/VILANTEROL 200-25MCG/INH INH SCH (09:03)
[2019-12-07] MEDS: ALBUTEROL HFA 90 MCG/SPRAY INH SCH (09:04)
[2019-12-07] MEDS: TIOTROPIUM BROMIDE 18 MCG/INH INH SCH (09:04)
[2019-12-07] MEDS: AMIODARONE 200 MG TABLET PO SCH (10:29)
[2019-12-07] MEDS: LACTOBACILLUS CHEW TABLET PO SCH (10:29)
[2019-12-07] MEDS ORDERED: SPIRONOLACTONE 25 MG TABLET PO SCH (10:30)
[2019-12-07] MEDS: OMEPRAZOLE 20 MG CAPSULE.DR PO SCH (10:30)
[2019-12-07] MEDS: ASPIRIN 81 MG TABLET CHEW PO SCH (10:30)
[2019-12-07] MEDS: CARVEDILOL 3.125 MG TABLET PO SCH (10:31)
[2019-12-07] MEDS: POTASSIUM CHLORIDE 10 MEQ TABLET.ER PO SCH (10:32)
[2019-12-07] MEDS ORDERED: FUROSEMIDE 40 MG TABLET PO ONE (11:00)
[2019-12-07] MEDS: NICOTINE 14MG/24 HR PATCH.TD24 TD SCH (11:20)
[2019-12-07] MEDS ORDERED: AMIO200T42 PO (13:14)
[2019-12-07] MEDS ORDERED: FURO-92 PO (13:14)
[2019-12-07 14:20] VITALS: BP 108/68
[2019-12-07] MEDS ORDERED: RIVAROXABAN 20 MG TABLET PO SCH (17:00)
[2019-12-08] MEDS ORDERED: SPIRONOLACTONE 25 MG TABLET PO SCH (09:00)
== END 2019-12-07 15:32 | disposition home or self-care (01) | DRG 280 ==
LOC: ED 03:26 → EDIP 03:46 → 5SO 04:10
PROVIDERS: ADMIT Family Medicine; ATTEND Family Medicine
PROC: 4A023N6 Measurement of Cardiac Sampling and Pressure, Right Heart, Percutaneous Approach (ICD-10-PCS; principal; 2019-12-06)
DX: I21.A1 Myocardial infarction type 2 (principal); I50.31 Acute diastolic (congestive) heart failure; J15.9 Unspecified bacterial pneumonia; J96.21 Acute and chronic respiratory failure with hypoxia; D68.69 Other thrombophilia; E44.1 Mild protein-calorie malnutrition; Z68.1 Body mass index [BMI] 19.9 or less, adult; E87.1 Hypo-osmolality and hyponatremia; I42.8 Other cardiomyopathies; J44.0 Chronic obstructive pulmonary disease with (acute) lower respiratory infection; I11.0 Hypertensive heart disease with heart failure; F17.210 Nicotine dependence, cigarettes, uncomplicated; I25.5 Ischemic cardiomyopathy; R33.9 Retention of urine, unspecified; I27.20 Pulmonary hypertension, unspecified; I45.10 Unspecified right bundle-branch block; R94.31 Abnormal electrocardiogram [ECG] [EKG]; I27.81 Cor pulmonale (chronic); I48.91 Unspecified atrial fibrillation; Z79.01 Long term (current) use of anticoagulants; Z79.899 Other long term (current) drug therapy; Z86.711 Personal history of pulmonary embolism; Z95.810 Presence of automatic (implantable) cardiac defibrillator; Z90.49 Acquired absence of other specified parts of digestive tract; Z88.5 Allergy status to narcotic agent; Z80.1 Family history of malignant neoplasm of trachea, bronchus and lung; Z82.49 Family history of ischemic heart disease and other diseases of the circulatory system
CPT/HCPCS: 36415; 36600; 71045; 76937; 78582; 80048; 80053; 82728; 82803; 83605; 83615; 83880; 84145; 84484; 85025; 85520; 86140; 87040; 87070; 87077; 87205; 93005; 93306; 93451; 94640; 94664; 96365; 96366; 96375; 99156; 99157; 99291; C1769; C1894; G0378; J0583; J0696; J1940; J2250; J3010; A9540; A9558; J2270; J2920; J2930